=== PATIENT | male | born 1945 | race Caucasian/White ===

== ENCOUNTER → 2021-06-14 | Outpatient (CLI) | payer MEDICARE ==
[~2021-06-14] MED LIST: COUM1TAB17 PO; ZEST1TAB6 PO
== END ==
LOC: M RAD 12:35
PROVIDERS: ATTEND Family Medicine
DX: R22.9 Localized swelling, mass and lump, unspecified (principal)

== ENCOUNTER → 2021-08-02 | Outpatient (CLI) | payer MEDICARE ==
[~2021-08-02] MED LIST changes: +LIDOCAINE 1% MDV 20ML VIAL As Ordered ONE
[2021-08-02 10:46] VITALS: BP 160/91
== END ==
LOC: M IRPRO 09:36
PROVIDERS: ATTEND Otolaryngology
DX: K11.8 Other diseases of salivary glands (principal)

== ENCOUNTER → 2021-09-13 | Outpatient (CLI) | payer MEDICARE ==
[~2021-09-13] MED LIST changes: -LIDOCAINE 1% MDV 20ML VIAL As Ordered ONE; +WARF-23
== END ==
LOC: M LABSMTC 11:00
PROVIDERS: ATTEND Anesthesiology
DX: Z01.812 Encounter for preprocedural laboratory examination (principal)

== ENCOUNTER → 2021-11-15 | Outpatient (REF) | payer MEDICARE ==
[2021-11-15 11:23] LABS: HEMATOCRIT 41.8 % (42.0-52.0); HEMOGLOBIN 14.2 g/dl (13.5-17.5); MEAN CORPUSCULAR HEMOGLOBIN 30.5 pg (27.0-33.0); MEAN CORPUSCULAR VOLUME 89.9 fl (80.0-96.0); PLATELET COUNT, AUTOMATED 160 10^3/uL (150-450); RED BLOOD COUNT 4.65 10^6/uL (4.30-6.10); WHITE BLOOD COUNT 6.8 10^3/uL (4.0-10.0)
[2021-11-15 12:58] LABS: ALBUMIN 3.5 GM/DL (3.2-5.2); ALT/SGPT 25 U/L (12-78); BILIRUBIN,TOTAL 0.4 MG/DL (0.2-1.0); BLOOD UREA NITROGEN 15 MG/DL (7-18); CARBON DIOXIDE LEVEL 28 MEQ/L (21-32); CHLORIDE LEVEL 109 MEQ/L (98-107); CREATININE FOR GFR 0.81 MG/DL (0.70-1.30); GLOMERULAR FILTRATION RATE > 60.0 (>42); GLUCOSE, FASTING 78 MG/DL (70-100); MAGNESIUM LEVEL 2.1 MG/DL (1.8-2.4); POTASSIUM SERUM 4.5 MEQ/L (3.5-5.1); SODIUM LEVEL 140 MEQ/L (136-145); TOTAL PROTEIN 6.5 GM/DL (6.4-8.2)
== END ==
LOC: M LABDRAWC 10:58
PROVIDERS: ATTEND Physician Assistant
DX: I42.8 Other cardiomyopathies (principal)

== ENCOUNTER → 2021-11-15 | Outpatient (REF) | payer MEDICARE ==
[2021-11-15 11:36] LABS: INR 2.79; PROTHROMBIN TIME 29.8 SECONDS (12.7-14.5)
== END ==
LOC: M SFHCCLAY 08:00
PROVIDERS: ATTEND Nurse Practitioner Family
DX: Z51.81 Encounter for therapeutic drug level monitoring (principal); Z79.01 Long term (current) use of anticoagulants

== ENCOUNTER → 2021-11-29 | Outpatient (CLI) | payer MEDICARE ==
[~2021-11-29] MED LIST changes: -WARF-23; +WARF-23 PO
== END ==
LOC: M LABSMTC 11:08
PROVIDERS: ATTEND Anesthesiology
DX: Z01.818 Encounter for other preprocedural examination (principal); Z11.52 Encounter for screening for COVID-19

== ENCOUNTER 2021-12-04 10:50 | Day surgery (SDC) | payer MEDICARE ==
[~2021-12-04] VITALS: Ht 177.8 cm; Wt 80.7 kg
[2021-12-04] MEDS ORDERED: LOVE1INJ SC (11:24)
[2021-12-04] MEDS ORDERED: LR 1,000 ML IV SCH ×2 (11:25→15:20)
[2021-12-04] MEDS ORDERED: MIDAZOLAM INJ 2MG/2ML VIAL (J2250 PER 1MG) As Ordered ONE (11:41)
[2021-12-04] MEDS ORDERED: fentaNYL 100 MCG/2 ML INJECTION As Ordered ONE (11:41)
[2021-12-04] MEDS ORDERED: LIDOCAINE 2% 100MG/5ML SDV (FOR ANES.) As Ordered ONE (11:42)
[2021-12-04] MEDS ORDERED: dexameTHASONE 4 MG/ML 1ML VIAL (J1100 PER 1MG) As Ordered ONE (11:42)
[2021-12-04] MEDS ORDERED: ONDANSETRON 4MG 2ML VIAL As Ordered ONE (11:42)
[2021-12-04] MEDS ORDERED: propofoL 200 MG/20 ML VIAL As Ordered ONE (11:42)
[2021-12-04 11:46] LABS: INR 1.05; PROTHROMBIN TIME 14.2 SECONDS (12.7-14.5)
[2021-12-04] MEDS ORDERED: ROCURONIUM BROMIDE 50 MG/5 ML VIAL As Ordered ONE (12:33)
[2021-12-04] MEDS ORDERED: HYDROmorphone HCL 2MG/ML 1ML VIAL As Ordered ONE (12:33)
[2021-12-04] MEDS ORDERED: BACITRACIN OINTMENT 30GM TUBE As Ordered ONE (12:39)
[2021-12-04] MEDS ORDERED: LIDOCAINE W/EPINEPHRINE 1% 20ML VIAL As Ordered ONE (12:39)
[2021-12-04] MEDS ORDERED: PHENYLephrine 500MCG 5ML (100MCG/ML) SYRINGE As Ordered ONE (13:31)
[2021-12-04] MEDS ORDERED: ePHEDrine SULFATE 25 MG/5 ML(5MG/ML) SYRINGE As Ordered ONE (13:31)
[2021-12-04] MEDS ORDERED: PHENYLEPHRINE 10MG/ML 1ML VIAL (J2370 PER 1) As Ordered ONE (13:49)
[2021-12-04] MEDS ORDERED: ACETAMINOPHEN 1000MG 100ML IV BTL (OFIRMEV) (J0131 PER 10MG) As Ordered ONE (14:12)
[2021-12-04] MEDS ORDERED: fentaNYL 100 MCG/2 ML INJECTION IV PRN (15:20)
[2021-12-04] MEDS ORDERED: PERCOCET 5MG/325MG TAB PO PRN (15:20)
[2021-12-04] MEDS ORDERED: ONDANSETRON 4MG 2ML VIAL IV PRN ×2 (15:20→16:15)
[2021-12-04] MEDS ORDERED: MORPHINE 2 MG/ML 1ML VIAL IV PRN (15:20)
[2021-12-04] MEDS ORDERED: ANEXSIA, NORCO 7.5MG/325MG TABLET(HYDROCODONE/APAP) PO PRN (16:15)
[2021-12-04 16:45] VITALS: BP 128/73
[2021-12-04] MEDS: LR 1,000 ML IV SCH (17:08)
[2021-12-04 17:15] VITALS: BP 127/71
[2021-12-04 18:15] VITALS: BP 126/71
[2021-12-04] MEDS: BACITRACIN OINTMENT 30GM TUBE TOP SCH (21:00)
[2021-12-04 22:01] VITALS: BP 124/71
[2021-12-05 01:26] VITALS: BP 118/67
[2021-12-05 06:05] VITALS: BP 119/65
[2021-12-05] MEDS: LR 1,000 ML IV SCH (06:09)
[2021-12-05] MEDS: BACITRACIN OINTMENT 30GM TUBE TOP SCH (09:18)
[2021-12-05] MEDS ORDERED: BACI50OI TOP (11:42)
[2021-12-05] MEDS ORDERED: LOVE1INJ SC (11:42)
== END 2021-12-05 13:05 | disposition home or self-care (01) ==
LOC: M SDC 10:50 → M MS5PR 16:30 → M SDC 12-05 13:05
PROVIDERS: ATTEND Otolaryngology
DX: D11.0 Benign neoplasm of parotid gland (principal); K21.9 Gastro-esophageal reflux disease without esophagitis; Z79.01 Long term (current) use of anticoagulants; Z95.0 Presence of cardiac pacemaker; D68.51 Activated protein C resistance; Z86.718 Personal history of other venous thrombosis and embolism; Z79.899 Other long term (current) drug therapy
CPT/HCPCS: 36415; 42415; 85610; 88307; 96360; 96361; J0131; J1100; J1170; J2250; J2370; J2405; J3010

== ENCOUNTER → 2024-07-20 | Outpatient (CLI) | payer MEDICARE ==
[~2024-07-20] MED LIST changes: +BACI50OI TOP; +LOVE1INJ SC
== END ==
LOC: M RAD 13:15
PROVIDERS: ATTEND Physician Assistant
DX: I87.311 Chronic venous hypertension (idiopathic) with ulcer of right lower extremity (principal)

== ENCOUNTER → 2024-08-12 | Outpatient (POV) | payer MEDICARE ==
[~2024-08-12] VITALS: Ht 172.7 cm; Wt 74.8 kg
[2024-08-12 16:10] VITALS: BP 138/82; O2SAT 99
== END ==
LOC: M IRPOV 15:53
PROVIDERS: ATTEND Radiology Diagnostic Radiology
DX: I87.311 Chronic venous hypertension (idiopathic) with ulcer of right lower extremity (principal); L97.319 Non-pressure chronic ulcer of right ankle with unspecified severity; D68.51 Activated protein C resistance; Z79.01 Long term (current) use of anticoagulants; Z86.718 Personal history of other venous thrombosis and embolism; Z88.1 Allergy status to other antibiotic agents; Z88.8 Allergy status to other drugs, medicaments and biological substances

== ENCOUNTER → 2024-11-13 | Outpatient (CLI) | payer MEDICARE ==
[~2024-11-13] MED LIST changes: +IBUPROFEN 600 MG TAB PO PRN
[2024-11-13 10:10] VITALS: TEMP 96.8
[2024-11-13] MEDS: LIDOCAINE 1% MDV 20 ML VIAL SC SCH (12:10)
[2024-11-13] MEDS: NS (Normal Saline) 0.9% 1,000 ML IV SCH (12:11)
[2024-11-13] MEDS: SODIUM TETRADECYL SULFATE(3%)30MG/ML 2ML VIAL (SOTRADECOL) IV SCH (12:14)
[2024-11-13] MEDS: MIDAZOLAM INJ 2 MG/2 ML VIAL IV PRN (12:15)
[2024-11-13 13:00] VITALS: BP 161/83; O2SAT 98
== END ==
LOC: M IRPRO 09:56
PROVIDERS: ATTEND Radiology Diagnostic Radiology
DX: I83.212 Varicose veins of right lower extremity with both ulcer of calf and inflammation (principal)
CPT/HCPCS: 36465; 36475; 36476; 99152; 99153; J2250; J3010

== ENCOUNTER → 2024-11-16 | Outpatient (CLI) | payer MEDICARE ==
[~2024-11-16] MED LIST changes: -IBUPROFEN 600 MG TAB PO PRN
== END ==
LOC: M RAD 11:09
PROVIDERS: ATTEND Radiology Diagnostic Radiology
DX: I83.011 Varicose veins of right lower extremity with ulcer of thigh (principal); L97.919 Non-pressure chronic ulcer of unspecified part of right lower leg with unspecified severity; I83.891 Varicose veins of right lower extremity with other complications

== ENCOUNTER → 2024-11-30 | Outpatient (POV) | payer MEDICARE ==
[~2024-11-30] VITALS: Ht 177.8 cm; Wt 75.0 kg
[2024-11-30 11:25] VITALS: BP 130/82; O2SAT 99
== END ==
LOC: M IRPOV 10:55
PROVIDERS: ATTEND Registered Nurse School
DX: Z48.812 Encounter for surgical aftercare following surgery on the circulatory system (principal); I87.2 Venous insufficiency (chronic) (peripheral); I82.811 Embolism and thrombosis of superficial veins of right lower extremity; L97.219 Non-pressure chronic ulcer of right calf with unspecified severity; Z88.0 Allergy status to penicillin
CPT/HCPCS: 93971; G0463

== ENCOUNTER → 2024-12-16 | Outpatient (CLI) | payer MEDICARE | LOC: M RAD 07:07 | PROVIDERS: ATTEND Radiology Diagnostic Radiology | DX: I87.2 Venous insufficiency (chronic) (peripheral) (principal) ==

== ENCOUNTER → 2024-12-16 | Outpatient (POV) | payer MEDICARE ==
[~2024-12-16] VITALS: Ht 177.8 cm; Wt 77.3 kg
[2024-12-16 08:45] VITALS: BP 128/88; O2SAT 99
== END ==
LOC: M IRPOV 07:13
PROVIDERS: ATTEND Registered Nurse School
DX: Z48.812 Encounter for surgical aftercare following surgery on the circulatory system (principal); I87.2 Venous insufficiency (chronic) (peripheral); L97.319 Non-pressure chronic ulcer of right ankle with unspecified severity; Z88.0 Allergy status to penicillin

== ENCOUNTER → 2025-03-19 | Outpatient (CLI) | payer MEDICARE ==
[~2025-03-19] MED LIST changes: +IBUPROFEN 600 MG TAB PO PRN
[2025-03-19 07:00] VITALS: TEMP 97.5
[2025-03-19] MEDS: D5W 1000 ML XX SCH (07:15)
[2025-03-19] MEDS: SODIUM TETRADECYL SULFATE (1%) 20MG/2ML VIAL (SOTRADECOL) IV SCH (09:08)
[2025-03-19] MEDS: LIDOCAINE 1% MDV 20 ML VIAL SC SCH (09:08)
[2025-03-19 10:00] VITALS: BP 157/86; O2SAT 98
== END ==
LOC: M IRPRO 06:48
PROVIDERS: ATTEND Radiology Diagnostic Radiology
DX: I83.012 Varicose veins of right lower extremity with ulcer of calf (principal)

== ENCOUNTER → 2025-03-22 | Outpatient (CLI) | payer MEDICARE ==
[~2025-03-22] MED LIST changes: -IBUPROFEN 600 MG TAB PO PRN
== END ==
LOC: M RAD 09:43
PROVIDERS: ATTEND Radiology Diagnostic Radiology
DX: I83.012 Varicose veins of right lower extremity with ulcer of calf (principal)

== ENCOUNTER → 2025-03-29 | Outpatient (POV) | payer MEDICARE | LOC: M IRPOV 09:30 | PROVIDERS: ATTEND Registered Nurse School | DX: I87.2 Venous insufficiency (chronic) (peripheral) (principal); I83.891 Varicose veins of right lower extremity with other complications; Z80.0 Family history of malignant neoplasm of digestive organs; Z86.718 Personal history of other venous thrombosis and embolism; Z88.0 Allergy status to penicillin; Z95.0 Presence of cardiac pacemaker ==